=== PATIENT | male | born 1965 | race Caucasian/White ===

== ENCOUNTER 2023-03-11 07:27 | Outpatient (REF) | payer OTHER, SELFPAY ==
[2023-03-11 11:57] LABS: Appearance Urine Clear; Color Urine Yellow; Glucose Urine UA Negative (Negative); Leukocyte Esterase Urine Negative (Negative); Nitrite Urine Negative (Negative); PH 7.5 (5.0-9.0); Specific Gravity - Urine 1.015 (1.005-1.025); Urine Blood Negative (Negative); Urine Ketones Negative (Negative); Urine Protein Negative (Neg-Trace)
[2023-03-11 12:05] LABS: Prostate Specific Antigen Scr 0.71 ng/mL (<0.05-4.0)
[2023-03-11 12:21] LABS: Alanine Aminotransferase 26 U/L (0-40); Albumin Level 3.9 g/dL (3.5-5.0); Alkaline Phosphatase 69 U/L (39-117); Anion Gap 9 (12-20); Aspartate Amino Transferase 23 U/L (5-37); Bilirubin Total 0.5 mg/dL (0.0-1.0); Blood Urea Nitrogen 11 mg/dL (9-16); Calcium 9.4 mg/dL (8.4-10.2); Carbon Dioxide 29 mmol/L (22-29); Chloride 107 mmol/L (96-108); Cholesterol 243 mg/dL; Estimated Glomerular Filt Rate > 60; Glucose Fasting 95 mg/dL (60-99); HDL Cholesterol 62 mg/dL; LDL Cholesterol Calculated 164 mg/dl; Potassium 4.6 mmol/L (3.3-5.1); Sodium 140 mmol/L (135-145); TSH reflex Free T4 2.78 uIU/mL (0.32-4.0); Triglycerides 85 mg/dL
[2023-03-11 12:42] LABS: Creatinine Urine 151.78 mg/dL; Microalbumin Urine < 5.0 mg/L
== END 2023-03-11 07:28 | disposition home or self-care (01) ==
LOC: HO.WFDLDS 07:27
PROVIDERS: Visit Provider Family Medicine
DX: Z00.00 Encounter for general adult medical examination without abnormal findings (principal); Z12.5 Encounter for screening for malignant neoplasm of prostate; I10 Essential (primary) hypertension
CPT/HCPCS: 36415; 80053; 80061; 81003; 82043; 84153; 84443

== ENCOUNTER 2023-03-18 10:05 | Outpatient (REF) | payer OTHER, SELFPAY ==
--- NOTE | ~2023-03-18 | XR_ITS ---
EXAMINATION: XR CHEST CLINICAL INFORMATION: Routine physical COMPARISON: 10/02/2008 TECHNIQUE: 2 views of the chest were obtained. FINDINGS: No significant abnormality is noted involving the heart, lungs, mediastinum, bony thorax or soft tissues. XR/XR chest 2V IMPRESSION: Unremarkable examination.
== END 2023-03-18 10:06 | disposition home or self-care (01) ==
LOC: HO.XRAY 10:05
PROVIDERS: PCP Family Medicine; Visit Provider Family Medicine
DX: Z00.00 Encounter for general adult medical examination without abnormal findings (principal); J45.909 Unspecified asthma, uncomplicated; R06.89 Other abnormalities of breathing; Z83.6 Family history of other diseases of the respiratory system
CPT/HCPCS: 71046

== ENCOUNTER 2023-03-24 13:56 | Outpatient (AMB) | payer OTHER, SELFPAY ==
[2023-03-24 14:07] VITALS: BP 120/64; PULSE 60; O2SAT 96; BMI 30.6
--- NOTE | 2023-03-24 14:07 | A.OFFPC_ITS ---
Vital Signs 03/24/23 14:07 Height 5 ft 11 in Weight 219 lb 8 oz BMI 30.6 BP 120/64 Blood Pressure Location Lt brachial Position Sitting Pulse 60 Pulse Source Pulse Oximeter Pulse Oximetry (%) 96 Oxygen Delivery Method Room Air Intake Visit Reasons: CPE with f/u labs and health maintenance Intake Note: Patient is here for his physical. Following up on labs, x-ray. Patient is concerned about clearing his throat a lot, too. Patient is concerned about plantar fasciitis? Allergies No Known Allergies Allergy (Unverified 03/24/23 14:10) Medication List - Last Reconciled 03/24/23 by Srikanth Reyes MD albuterol sulfate 90 mcg/actuation 1 puff inhalation QID 30 days omeprazole 20 mg PO DAILY 30 days Tobacco use date assessed: 03/24/23 Dental Screening Dental Screen Date: 03/24/23 Did you have a dental visit in the last 12 months?: Yes Did you have a dental problem in the last 6 months where you did not have access to dental care?: No Was dental information given to patient?: Patient has dentist HPI CPE with f/u labs and health maintenance HPI Details Patient presents for CPE Feels well today. Chronic tickle and cough have resolved. He did not try om eprazole but plans to if this returns. Ordered chest x-ray due to the above and patient has family history of pulmonary fibrosis. Chest x-ray was clear. Pain at plantar surface of feet bilaterally in front Of his heels. Worse after he has rested for a while and then starts to walk again Complaint of thickened nails No other complaints. [facility] Medical History Asthma Kidney stone on left side Surgical History H/O neck surgery History of appendectomy Family History Father Pulmonary fibrosis Arthritis High blood pressure Social History Household Members: Spouse Both parents involved: No Caregiver staying overnight: No Housing: House Are you a primary home child care provider to a significant other at home: No Do you presently have visiting nurse or other home services: No 75 years or older and lives alone: No Alcohol intake: current Patient Tobacco Use Status: Never used Tobacco e-Cigarette/Vaping Use: Never Used service: Yes Current occupational status: employed Current occupation: [employer] Cognitive needs: No Hearing needs: No Vision needs: No Review of Systems Const Denies chills, Denies fatigue, Denies fever(s), Denies headache(s) and Denies weakness Eyes Denies change in vision ENT Denies dizziness, Denies headache(s), Denies hearing loss, Denies nasal c ongestion, Denies sinus pain, Denies sinus pressure and Denies sore throat Card Denies chest pain, Denies lightheadedness, Denies dyspnea and Denies other (palpitations) Resp Denies cough, Denies dyspnea and Denies wheezing GI Denies abdominal pain, Denies melena, Denies hematochezia, Denies change in bowel habits, Denies dyspepsia and Denies nausea Denies hematuria and Denies dysuria Musc Details: Plantar foot pain bilaterally. See HPI Denies abnormal gait, Denies myalgias, Denies arthralgias, Denies numbness and Denies tingling Skin/Breast Details: Dry think in nails. No itch or burning Denies rash, Denies unusual bruising and Denies wounds Neuro Denies abnormal gait, Denies dizziness, Denies headache(s), Denies memory loss, Denies numbness, Denies Sensory deficit (Neuro), Denies tingling and Denies weakness Psych Denies anxiety, Denies depression and Denies memory loss Endo Denies cold intolerance, Denies fatigue, Denies heat intolerance, Denies polydipsia and Denies polyuria Gregorio/Lymph Denies easy bleeding and Denies easy bruising Aller/Immun Denies wheezing Physical exam (Primary Care) Vital Signs: Last Vital Signs Pulse 60 03/24/23 14:07 BP 120/64 03/24/23 14:07 Pulse Ox 96 03/24/23 14:07 Oxygen Delivery Method Room Air 03/24/23 14:07 BMI result Body Mass Index 30.6 Tobacco/Smoking Status: Tobacco use Status Tobacco use date assessed 03/24/23 03/24/23 14:17 Patient Tobacco Use Status Never used Tobacco 03/24/23 14:09 e-Cigarette/Vaping Use Never Used 03/24/23 14:09 Const Other: General Appearance: no apparent distress, pleasant. HEENT: PERRLA, EOMI bilaterally, nose clear, TM's normal. Oral cavity: no lesions, pharnyx and tonsils normal. Neck: supple, no lymphadenopathy, no thyromegaly, JVP flat, no carotid bruit Heart: RRR, no murmurs, clicks or rubs, no gallops. Lungs: clear to auscultation. Chest wall: nontender. Abdomen: soft, non tender/non distended, no masses palpated, no hepatosplenomegaly, normal active bowel sounds. Back: normal ROM of spine, no spinal tenderness, no CVA tenderness. Skin: normal, no rash. Dry thickened nails. No erythema. Peripheral pulses: 2+, radial, dorsalis pedis, posterior tibial, bilaterally symetrical. Extremities: Tenderness at bilateral patch our services just anterior to the heel. no edema. Neurologic Exam: alert and oriented x3, gait normal, no focal abnormality, motor 5/5 bilaterally proximally and distally in all 4 extremities, DTRs 1-2+ in all 4 exremities, Rhomberg negative, tiptoes for 5 seconds. Psych: affect normal. Neuro Sensory Exam: No Sensory deficit (Neuro) Assessment and Plan Assessment & Plan (1) Adult general medical exam: Code(s): Z00.00 - Encounter for general adult medical examination without abnormal findings Plan: 57-year-old male presents for complete physical exam Encouraged healthy diet with active lifestyle and plenty of exercise (2) Plantar fasciitis: Code(s): M72.2 - Plantar fascial fibromatosis Plan: Demonstrated exercises Recommended ice and NSAIDs Can use heel cups when exercising (3) Throat irritation: Code(s): J39.2 - Other diseases of pharynx Plan: This seems to have resolved spontaneously. Had prescribed omeprazole to see if this would help but he has not tried yet. He says if symptoms resolve he will try it. He was doing a lot of coughing and throat clearing and has a family history of pulmonary fibrosis so he was concerned about this. Also get a chest x-ray which was clear (4) Screening for prostate cancer: Code(s): Z12.5 - Encounter for screening for malignant neoplasm of prostate Plan: PSA is within normal limits (5) Screening for colon cancer: Code(s): Z12.11 - Encounter for screening for malignant neoplasm of colon Plan: Colonoscopy about 4 years ago and he was told to follow-up in 10 years Up-to-date (6) Thickened nails: Code(s): L60.2 - Onychogryphosis Plan: No burning or itching. Likely had prior fungal infection and also has chronic nail trauma as he likes to hike No specific medication recommendations at this time. Avoid additional nail trauma Keep feet moisturizer (7) Hyperlipidemia: Code(s): E78.5 - Hyperlipidemia, unspecified Plan: LDL cholesterol is high at 160 Good HDL but likely not fully protective high LDL Encouraged diet low in saturated fats and cholesterol. Encouraged weight loss and continue exercise Will repeat in 3 months and discuss options Coding Level of Care Code Est Pt Level 4 (19920) Est Pt Prev Care 40-64y(25455) Diagnoses Adult general medical exam Z00.00 Plantar fasciitis M72.2 Throat irritation J39.2 Screening for prostate cancer Z12.5 Screening for colon cancer Z12.11 Thickened nails L60.2 Hyperlipidemia E78.5
== END 2023-03-24 14:53 | disposition home or self-care (01) ==
PROVIDERS: PCP Family Medicine; Visit Provider Family Medicine
DX: Z00.00 Encounter for general adult medical examination without abnormal findings (principal); L60.2 Onychogryphosis; E78.5 Hyperlipidemia, unspecified; M72.2 Plantar fascial fibromatosis
CPT/HCPCS: 99396

== ENCOUNTER 2023-06-16 07:33 | Outpatient (REF) | payer OTHER, SELFPAY ==
[2023-06-16 11:35] LABS: Alanine Aminotransferase 22 U/L (0-40); Albumin Level 4.1 g/dL (3.5-5.0); Alkaline Phosphatase 69 U/L (39-117); Anion Gap 8 (12-20); Aspartate Amino Transferase 21 U/L (5-37); Bilirubin Total 0.4 mg/dL (0.0-1.0); Blood Urea Nitrogen 15 mg/dL (9-16); Calcium 9.1 mg/dL (8.4-10.2); Carbon Dioxide 28 mmol/L (22-29); Chloride 107 mmol/L (96-108); Cholesterol 223 mg/dL (<200); Estimated Glomerular Filt Rate > 60; Glucose Fasting 98 mg/dL (60-99); HDL Cholesterol 60 mg/dL (>40); LDL Cholesterol Calculated 148 mg/dL (<100); Sodium 139 mmol/L (135-145); Total Protein 6.9 g/dL (6.5-8.0); Triglycerides 75 mg/dL (<150)
== END 2023-06-16 07:34 | disposition home or self-care (01) ==
LOC: HO.WFDLDS 07:33
PROVIDERS: Visit Provider Family Medicine
DX: Z00.00 Encounter for general adult medical examination without abnormal findings (principal); E78.5 Hyperlipidemia, unspecified
CPT/HCPCS: 36415; 80053; 80061

== ENCOUNTER 2023-06-25 14:25 | Outpatient (AMB) | payer OTHER, SELFPAY ==
[2023-06-25 14:36] VITALS: BP 120/70; PULSE 66; O2SAT 98; BMI 31.0
--- NOTE | 2023-06-25 14:36 | MHC.PC.OV ---
Vital Signs 06/25/23 14:36 Height 5 ft 11 in Weight 222 lb 4 oz BMI 31.0 BP 120/70 Blood Pressure Location Lt brachial Position Sitting Pulse 66 Pulse Source Pulse Oximeter Pulse Oximetry (%) 98 Oxygen Delivery Method Room Air Intake Visit Reasons: f/u labs Intake Note: Patient is here to follow up on labs today. Allergies No Known Allergies Allergy (Unverified 06/25/23 14:37) Tobacco use date assessed: 06/25/23 HPI f/u labs HPI Details 57 y/o male presents to f/u labs. Labs were drawn 06/16/23. Reviewed labs with pt. Triglycerides 75. TC 223. LDL 148. HDL 60. Pt notes throat irritation have improved and has not trialed omeprazole yet. PFSH Medical History Kidney stone on left side Asthma Surgical History H/O neck surgery History of appendectomy Family History Father Pulmonary fibrosis Arthritis High blood pressure Social History Household Members: Spouse Both parents involved: No Caregiver staying overnight: No Housing: House Are you a primary healthcare consultant to a significant other at home: No Do you presently have visiting nurse or other home services: No 75 years or older and lives alone: No Alcohol intake: current Patient Tobacco Use Status: Never used Tobacco e-Cigarette/Vaping Use: Never Used service: Yes Current occupational status: employed Current occupation: [employer] Cognitive needs: No Hearing needs: No Vision needs: No Questionnaire ACT Questionnaire In the past 4 weeks, how much of the time did your asthma keep you from getting as much done at work, school or at home?: None of the time During the past 4 weeks, how often have you had shortness of breath?: Not at all (once) During the past 4 weeks, how often did your asthma symptoms wake you up at night or earlier than usual in the morning?: Not at all During the past 4 weeks, how often have you had to use your rescue inhaler or nebulizer medication?: Not at all (once or twice) How would you rate your asthma control during the past 4 weeks?: Completely controlled Score: 25 Review of Systems Const Denies chills, Denies fatigue, Denies fever(s), Denies headache(s) and Denies weakness ENT Denies dizziness and Denies headache(s) Card Denies dyspnea Resp Denies cough, Denies dyspnea, Denies wheezing and Denies other (shortness of breath) Musc Denies numbness and Denies tingling Neuro Denies dizziness, Denies headache(s), Denies numbness, Denies tingling and Denies weakness Psych Denies anxiety and Denies depression Endo Denies fatigue Aller/Immun Denies wheezing Physical exam (Primary Care) Vital Signs: Last Vital Signs Pulse 66 06/25/23 14:36 BP 120/70 06/25/23 14:36 Pulse Ox 98 06/25/23 14:36 Oxygen Delivery Method Room Air 06/25/23 14:36 BMI result Body Mass Index 31.0 Tobacco/Smoking Status: Tobacco use Status Tobacco use date assessed 06/25/23 06/25/23 14:43 Patient Tobacco Use Status Never used Tobacco 06/25/23 14:43 e-Cigarette/Vaping Use Never Used 06/25/23 14:43 Const General: well developed; No acute distress Nutritional Appearance: well nourished Orientation/consciousness: patient oriented x3 HENMT Head: Yes normocephalic and Yes atraumatic Eyes General: appearance normal, both eyes and all related structures Pupils: Equal, round and reactive pupils present EOM: EOMs intact bilaterally Resp Effort & Inspection: normal respiratory effort Auscultation: clear to auscultation bilaterally Cardio Rate: regular rate Rhythm: regular rhythm Heart sounds: S1 normal heart sound present, S2 normal heart sound present, no gallops, no murmurs and no rubs Neuro General: patient oriented x3 and gait normal Cranial nerves: Yes Equal, round and reactive pupils present Psych Affect: normal affect Office Procedures Flu Questionnaire Does the patient have a severe egg allergy?: No Does the patient have severe life threatening allergies?: No Does the patient have a fever or illness today?: No Has the patient ever had Guillain-[place] Syndrome?: No Has the patient ever had any past reaction to a flu shot?: No Pulmonary Testing Pulmonary Testing Details: [phone] best 460 All charges added?: Additional procedure code (CPT) needed Immunizations flu vacc [id number] 6mos up(PF) 60 mcg(15 mcgx4)/0.5 mL IM syringe Performing Provider: Srikanth Reyes MD Performing Location[place] [facility] Documented (not given) by: Masha Rider CMA on 06/25/23 14:51 Reason Not Given: Received Previously Assessment and Plan Assessment & Plan (1) Hyperlipidemia: Code(s): E78.5 - Hyperlipidemia, unspecified Plan: Patient?made?significant?improvements?in?his?LDL?cholesterol. HDL?cholesterol?of?remains?high Encouraged?ongoing?dietary?changes?and?weight?loss He?will?follow-up?at?his?annual?exam?next?year (2) Throat irritation: Code(s): J39.2 - Other diseases of pharynx Plan: This?has?resolved He?can?let?me?know?if?this?return (3) Plantar fasciitis: Code(s): M72.2 - Plantar fascial fibromatosis Plan: Improving?with?exercises?and?a?shoe?insert (4) Asthma: Code(s): J45.909 - Unspecified asthma, uncomplicated Plan: ACT?questionnaire?25, on?albuterol?as?needed He?is?optimized Orders: Orders Pulmonary Test/Procedure Today J45.909 - Unspecified asthma, uncomplicated Influenza [id number] Immunization Today Z23 - Encounter for immunization Coding Level of Care Code Est Pt Level 4 (11834) Diagnoses Hyperlipidemia E78.5 Throat irritation J39.2 Plantar fasciitis M72.2 Asthma J45.909
== END 2023-06-25 15:52 | disposition home or self-care (01) ==
PROVIDERS: PCP Family Medicine; Visit Provider Family Medicine
DX: E78.5 Hyperlipidemia, unspecified (principal); J39.2 Other diseases of pharynx; M72.2 Plantar fascial fibromatosis; J45.909 Unspecified asthma, uncomplicated
CPT/HCPCS: 99214

== ENCOUNTER 2024-03-31 07:53 | Outpatient (REF) | payer OTHER, SELFPAY ==
[2024-03-31 11:57] LABS: Alanine Aminotransferase 21 U/L (0-40); Albumin Level 4.1 g/dL (3.5-5.0); Alkaline Phosphatase 71 U/L (39-117); Aspartate Amino Transferase 23 U/L (5-37); Bilirubin Direct 0.3 mg/dL (0.0-0.5); Bilirubin Total 0.8 mg/dL (0.0-1.0); Cholesterol 252 mg/dL (<200); HDL Cholesterol 66 mg/dL (>40); LDL Cholesterol Calculated 172 mg/dL (<100); Triglycerides 72 mg/dL (<150)
== END 2024-03-31 07:54 | disposition home or self-care (01) ==
LOC: HO.WFDLDS 07:53
PROVIDERS: Visit Provider Nurse Practitioner Family
DX: E78.5 Hyperlipidemia, unspecified (principal)
CPT/HCPCS: 36415; 80061; 80076

== ENCOUNTER 2024-04-12 08:52 | Outpatient (AMB) | payer OTHER, SELFPAY ==
--- NOTE | 2024-04-12 09:06 | A.OFFPC_ITS ---
Vital Signs 04/12/24 09:10 Height 5 ft 11 in Weight 216 lb BMI 30.1 BP 100/50 L Blood Pressure Location Lt brachial Position Sitting Respiration 12 Pulse 61 Pulse Source Pulse Oximeter Temp 97.5 F Temp Source Tympanic Pulse Oximetry (%) 99 Oxygen Delivery Method Room Air Intake Visit Reasons: CPE with f/u labs and health maint. Intake Note: CPE Allergies No Known Allergies Allergy (Verified 04/12/24 09:07) Medication List - Last Reconciled 04/12/24 by Srikanth Reyes MD albuterol sulfate 90 mcg/actuation 1 puff inhalation QID 30 days Tobacco use date assessed: 04/12/24 Dental Screening Dental Screen Date: 04/12/24 Did you have a dental visit in the last 12 months?: Yes Did you have a dental problem in the last 6 months where you did not have access to dental care?: No Was dental information given to patient?: Patient has dentist HPI CPE with f/u labs and health maint. HPI Details 58 y/o male presents for a CPE with f/u labs and health maint. Labs were drawn 03/31/24. Reviewed labs with pt. Triglycerides 72. TC 252. LDL 172. HDL 66. Blood pressure today 100/50, 61p. Reports some fingers/toes numbness/tingling. Denies any chest pain. Colonoscopy about 5 years ago at [facility]. HPI Comments History of Present Illness Details Documentation assistance for Srikanth Reyes MD, was provided by Dago Osborn, Manager Of International on 04/12/2024 at 9:42 AM EST. I, Dr. Reyes, have read, observed, and verified documentation. [facility]LY [facility] Medical History Kidney stone on left side Asthma Surgical History H/O neck surgery History of appendectomy Family History Father Pulmonary fibrosis Arthritis High blood pressure Social History (Updated 04/12/24 @ 09:08 by Carol Ann Casper MA) Household Members: Spouse Both parents involved: No Caregiver staying overnight: No Housing: House Are you a primary intensive care anaesthetist to a significant other at home: No Do you presently have visiting nurse or other home services: No 75 years or older and lives alone: No Alcohol intake: current Patient Tobacco Use Status: Never used Tobacco e-Cigarette/Vaping Use: Never Used Second Hand Smoke Exposure: No service: Yes Current occupational status: employed Current occupation: [employer] Cognitive needs: No Hearing needs: No Vision needs: No Questionnaire PHQ-9 Over the last 2 weeks, how often have you been bothered by any of the following problems? 1. Little interest or pleasure in doing things: not at all 2. Feeling down, depressed, or hopeless: not at all 3. Trouble falling or staying asleep, or sleeping too much: not at all 4. Feeling tired or having little energy: not at all 5. Poor appetite or overeating: not at all 6. Feeling bad about yourself - or that you are a failure or have let yourself or your family down: not at all 7. Trouble concentrating on things, such as reading the newspaper or watching television: not at all 8. Moving or speaking so slowly that other people could have noticed. Or the opposite - being so fidgety or restless that you have been moving around a lot more than usual: not at all 9. Thoughts that you would be better off or of hurting yourself in some way: not at all Total score: 0 Depression Screening Interpretation: Negative Depression Screening Done: Yes 85163 - PHQ-9 Billing: Yes Source: Developed by Drs. Srinivasan Joshi, Yvonne Chapman, Joel Bains and colleagues, with an educational steven from [employer]. Thrive Questionnaire Date Thrive assessed: 04/12/24 I am a: Patient What is your living situation today?: I have a steady place to live Within the past 12 months, did the food you bought not last and you didn't have the money to get more?: Never true Within the past 12 months, did you worry whether your food would run out before you got money to buy more?: Never true Do you have trouble paying for medicines?: No Do you have trouble getting transportation to medical appointments?: No Do you have trouble paying your heating and electricity bill?: No Do you have trouble taking care of your child, family member or friend?: No Do you have trouble with day-to-day activities such as bathing, preparing meals, shopping, managing finances, etc.?: No Are you currently unemployed and looking for a job?: No Are you interested in more education?: No Currently or been in a relationship where the following occur: No concerns reported THRIVE Score: 0 AUDIT C Alcohol Use Questionnaire (AUDIT-C) 1. How often do you have a drink containing alcohol?: 2-3 times a week 2. How many drinks containing alcohol do you have on a typical day when you are drinking?: 1 or 2 3. How often do you have six or more drinks on one occasion?: Less than monthly Total Score: 4 MAXIM-7 AMB Questionnaire MAXIM-7 Date MAXIM - 7 assessed: 04/12/24 Feeling nervous, anxious, or on edge: 0 = Not at all Not being able to stop or control worryin = Not at all Worrying too much about different things: 0 = Not at all Trouble relaxin = Not at all Being so restless that it is hard to sit still: 0 = Not at all Becoming easily annoyed or irritable: 0 = Not at all Feeling afraid as if something awful might happen: 0 = Not at all Total MAXIM-7 score (0-4 normal; 5-9 mild; 10-14 moderate; 15-21 severe): 0 Source: Developed by Drs. Srinivasan Joshi, Yvonne Chapman, Joel Bains and colleagues, with an educational steven from [employer]. MAXIM-7 Assessment Billing MAXIM-7 Assessment Tool: MAXIM-7 Assessment 40113 Review of Systems Const Denies chills, Denies fatigue, Denies fever(s), Denies headache(s) and Denies weakness Eyes Denies change in vision ENT Denies dizziness, Denies headache(s), Denies hearing loss, Denies nasal congestion, Denies sinus pain, Denies sinus pressure and Denies sore throat Card Denies chest pain, Denies lightheadedness, Denies dyspnea and Denies other (palpitations) Resp Denies cough, Denies dyspnea and Denies wheezing GI Denies abdominal pain, Denies melena, Denies hematochezia, Denies change in bowel habits, Denies dyspepsia and Denies nausea Denies hematuria and Denies dysuria Musc Denies abnormal gait, Denies myalgias, Denies arthralgias, Denies numbness and Denies tingling Skin/Breast Denies rash, Denies unusual bruising and Denies wounds Neuro Denies abnormal gait, Denies dizziness, Denies headache(s), Denies memory loss, Denies numbness, Denies Sensory deficit (Neuro), Denies tingling and Denies weakness Psych Denies anxiety, Denies depression and Denies memory loss Endo Denies cold intolerance, Denies fatigue, Denies heat intolerance, Denies polydipsia and Denies polyuria Gregorio/Lymph Denies easy bleeding and Denies easy bruising Aller/Immun Denies wheezing Physical exam (Primary Care) Vital Signs: Last Vital Signs Temp 97.5 F 04/12/24 09:10 Pulse 61 04/12/24 09:10 Resp 12 04/12/24 09:10 BP 100/50 L 04/12/24 09:10 Pulse Ox 99 04/12/24 09:10 Oxygen Delivery Method Room Air 04/12/24 09:10 BMI result Body Mass Index 30.1 Tobacco/Smoking Status: Tobacco use Status Tobacco use date assessed 04/12/24 04/12/24 09:12 Patient Tobacco Use Status Never used Tobacco 04/12/24 09:08 e-Cigarette/Vaping Use Never Used 04/12/24 09:08 PHQ-9: PHQ-9 Score PHQ-9: Total score 0 04/12/24 09:12 Depression Screening Interpretation: Negative Thrive Assessment: Date of Thrive Assessment Date Thrive assessed 04/12/24 04/12/24 09:12 Currently or been in a relationship where the following occur: No concerns reported Const General: no acute distress, well developed, alert and awake Nutritional Appearance: well nourished Orientation/consciousness: patient oriented x3 HENMT Head: Yes normocephalic and Yes atraumatic Ears: hearing grossly normal bilaterally and TM's normal bilaterally General nose exam: Normal external nose present and Normal nares present Mouth: Normal oral and palatal mucosa present and moist mucous membranes Teeth and gingiva: dentition normal Throat: Yes posterior oropharynx normal Eyes General: appearance normal, both eyes and all related structures Pupils: Equal, round and reactive pupils present and Pupil accommodation reflex normal EOM: EOMs intact bilaterally Neck Neck: Yes normal visual inspection, Yes no lymphadenopathy and Yes trachea midline Thyroid: Thyroid normal Carotids: no bruits Lymphatic: no lymphadenopathy noted Chest Chest palpation & inspection: normal inspection of the chest Resp Effort & Inspection: normal respiratory effort Auscultation: clear to auscultation bilaterally Cardio Rate: regular rate Rhythm: regular rhythm Heart sounds: S1 normal heart sound present, S2 normal heart sound present, no gallops, no murmurs and no rubs Bruits: no abdominal aortic bruits and no carotid bruits GI Palpation (GI): No Abdominal aortic bruit present, Soft to palpation, nontender, No hepatosplenomegaly present and No Rebound tenderness present Auscultation: normal bowel sounds General: Yes no CVA tenderness Back/Spine/Pelvis Back: no CVA tenderness Cervical Spine: cervical ROM normal and No Cervical spine tenderness Thoracic/Lumbar Spine: thoraco-lumbar ROM normal, No pain with thoraco-lumbar ROM, No thoracic spinal tenderness and No lumbar spinal tenderness Skin Lesions: no lesions Rashes: no rashes Trauma: no lacerations or abrasions Wounds: no wounds Nails: normal Neuro General: patient oriented x3 Cranial nerves: Yes Equal, round and reactive pupils present Cognition (Neuro): normal cognition Gait exam (Neuro): Normal gait present Motor exam (neuro): 5/5 motor strength present throughout Sensory Exam: No Sensory deficit (Neuro) Deep tendon reflexes (DTR's): Right patellar reflex intensity grade: 2+ and Left patellar reflex intensity grade: 2+ Extrem General: Yes normal to inspection and No edema Psych Appearance: grossly normal Affect: normal affect Attitude: cooperative Thought process: Normal thought process present Assessment and Plan Assessment & Plan (1) Adult general medical exam: Code(s): Z00.00 - Encounter for general adult medical examination without abnormal findings Plan: 58-year-old?male?presents?for?complete?physical?exam Encouraged?healthy?diet?with?active?lifestyle?and?plenty?of?exercise (2) Hyperlipidemia: Code(s): E78.5 - Hyperlipidemia, unspecified Plan: LDL?cholesterol?is?too?high Starting?atorvastatin?20?mg?daily Recheck?lipids?in?a?few?months Encouraged?ongoing?work?at?diet?lower?in?saturated?fats?and?cholesterol,?exercis e?and?weight?loss (3) Hand numbness: Code(s): R20.0 - Anesthesia of skin Plan: Bilateral?tingling?in?fingers?and?toes?intermittently.??No?chest?pain Will?check?additional?labs (4) Screening for prostate cancer: Code(s): Z12.5 - Encounter for screening for malignant neoplasm of prostate Plan: Due?for?PSA Order (5) Screening for colon cancer: Code(s): Z12.11 - Encounter for screening for malignant neoplasm of colon Plan: Patient?says?he?had?a?colonoscopy?about?5?years?ago?at[facility] Will?request?report Orders: Orders Vitamin B12 and Folate Today E53.8 - Deficiency of other specified B group vitamins, R20.0 - Anesthesia of skin TSH reflex Free T4 Today R20.0 - Anesthesia of skin, Z00.00 - Encounter for general adult medical examination without abnormal findings Lipid Panel Today E78.5 - Hyperlipidemia, unspecified, Z00.00 - Encounter for general adult medical examination without abnormal findings Comprehensive [place]. Panel Fast Today E78.5 - Hyperlipidemia, unspecified, Z00.00 - Encounter for general adult medical examination without abnormal findings Complete Blood Count Auto Diff Today R20.0 - Anesthesia of skin, Z00.00 - Encounter for general adult medical examination without abnormal findings Medications: New atorvastatin 20 mg PO BEDTIME 90 days 90 tabs 2RF Coding Level of Care Code Est Pt Level 3 (40158) Est Pt Prev Care 40-64y(55758) Diagnoses Adult general medical exam Z00.00 Hyperlipidemia E78.5 Hand numbness R20.0 Screening for prostate cancer Z12.5 Screening for colon cancer Z12.11 Additional Codes MAXIM-7 Assessment Billing - MAXIM-7 Assessment Tool: MAXIM-7 Assessment 91090 ([id number])
[2024-04-12 09:10] VITALS: BP 100/50; PULSE 61; RESP 12; TEMP 36.4; O2SAT 99; BMI 30.1
== END 2024-04-12 09:48 | disposition home or self-care (01) ==
PROVIDERS: PCP Family Medicine; Visit Provider Family Medicine
DX: Z00.00 Encounter for general adult medical examination without abnormal findings (principal); E78.5 Hyperlipidemia, unspecified; R20.0 Anesthesia of skin; Z12.5 Encounter for screening for malignant neoplasm of prostate; Z12.11 Encounter for screening for malignant neoplasm of colon

== ENCOUNTER → 2024-04-12 08:52 | Outpatient (BNVA) | payer OTHER, SELFPAY | PROVIDERS: PCP Family Medicine; Visit Provider Family Medicine | DX: Z00.01 Encounter for general adult medical examination with abnormal findings (principal); E78.5 Hyperlipidemia, unspecified; R20.0 Anesthesia of skin | CPT/HCPCS: 96127 ==

== ENCOUNTER 2024-07-01 08:19 | Outpatient (REF) | payer OTHER, SELFPAY ==
[2024-07-01 10:57] LABS: MANUAL DIFF FLAG NO
[2024-07-01 11:03] LABS: Basophils Percent Auto 0.8 % (0-2); Eosinophils Absolute Auto 0.2 X10*3/uL (0.0-0.4); Eosinophils Percent Auto 4.2 % (0-4); Hematocrit 41.9 % (42.0-52.0); Hemoglobin 14.4 g/dl (14.0-18.0); Imm Gran Abs Auto 0.01 X10*3/uL (0.00-0.03); Imm Gran Pct Auto 0.2 % (0.0-0.4); Lymphocytes Absolute Auto 1.5 X10*3/uL (1.2-4.9); Mean Corpuscular HGB Conc 34.4 g/dl (31.0-36.0); Mean Corpuscular Hemoglobin 32.7 pg (27.0-33.0); Mean Corpuscular Volume 95.2 fL (80.0-98.0); Mean Platelet Volume 10.4 fL (9.4-12.4); Monocytes Absolute Auto 0.6 X10*3/uL (0.1-1.2); Monocytes Percent Auto 12.2 % (2-11); Neutrophils Absolute Auto 2.8 x10*3/uL (2.0-8.3); Neutrophils Percent Auto 54.6 % (45-73); Platelet Count 219 X10*3/uL (160-400); Red Cell Distribution Width 12.1 % (11.0-16.0); White Blood Count 5.2 X10*3/uL (4.8-10.8)
[2024-07-01 11:21] LABS: Alanine Aminotransferase 41 U/L (0-40); Albumin Level 4.1 g/dL (3.5-5.0); Alkaline Phosphatase 74 U/L (39-117); Anion Gap 9 (12-20); Aspartate Amino Transferase 36 U/L (5-37); Bilirubin Total 0.7 mg/dL (0.0-1.0); Blood Urea Nitrogen 13 mg/dL (9-16); Calcium 9.2 mg/dL (8.4-10.2); Carbon Dioxide 29 mmol/L (22-29); Chloride 106 mmol/L (96-108); Cholesterol 161 mg/dL (<200); Estimated Glomerular Filt Rate > 60; Glucose Fasting 90 mg/dL (60-99); HDL Cholesterol 62 mg/dL (>40); LDL Cholesterol Calculated 88 mg/dL (<100); Potassium 4.3 mmol/L (3.3-5.1); Sodium 140 mmol/L (135-145); Total Protein 6.9 g/dL (6.5-8.0); Triglycerides 57 mg/dL (<150)
[2024-07-01 11:57] LABS: Folate 14.5 ng/mL (> or = 4.0); Vitamin B12 1138 pg/mL (200-900)
== END 2024-07-01 08:20 | disposition home or self-care (01) ==
LOC: HO.WFDLDS 08:19
PROVIDERS: Visit Provider Family Medicine
DX: Z00.00 Encounter for general adult medical examination without abnormal findings (principal); E78.5 Hyperlipidemia, unspecified; R20.0 Anesthesia of skin; E53.8 Deficiency of other specified B group vitamins
CPT/HCPCS: 36415; 80053; 80061; 82607; 82746; 84443; 85025

== ENCOUNTER 2024-07-14 08:26 | Outpatient (AMB) | payer OTHER, SELFPAY ==
--- NOTE | 2024-07-14 08:47 | MHC.PC.OV ---
Vital Signs 07/14/24 08:48 Height 5 ft 11 in Weight 213 lb 2 oz BMI 29.7 BP 110/60 Blood Pressure Location Rt brachial Position Sitting Respiration 14 Pulse 71 Pulse Source Pulse Oximeter Temp 98.0 F Temp Source Oral Pulse Oximetry (%) 97 Oxygen Delivery Method Room Air Intake Visit Reasons: f/u HLD Allergies No Known Allergies Allergy (Verified 04/12/24 09:07) Tobacco use date assessed: 04/12/24 Dental Screening Dental Screen Date: 04/12/24 HPI f/u HLD HPI Details Patient?returns?to?follow-up?hyperlipidemia?and?lab Had?started?him?on?atorvastatin?20?mg?daily?for?LDL?cholesterol?over?170 Patient?states?that?he?has?been?having?body?aches.??These?did?not?go?away?and?he?started?a?cool?Q10?supplement?OTC?which?has?improved?his?symptoms. LDL?cholesterol?now?at?88 Also?reviewed?his?other?labs?including?his?ALT?with?his?slightly?elevated?at?40 Hematocrit?slightly?below?normal?range Has?other?labs?are?okay PFSH Medical History Kidney stone on left side Asthma Surgical History H/O neck surgery History of appendectomy Family History Father Pulmonary fibrosis Arthritis High blood pressure Social History (Updated 04/12/24 @ 09:08 by Carol Ann Casper [facility]) Household Members: Spouse Both parents involved: No Caregiver staying overnight: No Housing: House Are you a primary residential care officer to a significant other at home: No Do you presently have visiting nurse or other home services: No 75 years or older and lives alone: No Alcohol intake: current Patient Tobacco Use Status: Never used Tobacco e-Cigarette/Vaping Use: Never Used Second Hand Smoke Exposure: No service: Yes Current occupational status: employed Current occupation: [employer] Cognitive needs: No Hearing needs: No Vision needs: No Questionnaire PHQ-9 Over the last 2 weeks, how often have you been bothered by any of the following problems? 1. Little interest or pleasure in doing things: not at all 2. Feeling down, depressed, or hopeless: not at all 3. Trouble falling or staying asleep, or sleeping too much: not at all 4. Feeling tired or having little energy: not at all 5. Poor appetite or overeating: several days 6. Feeling bad about yourself - or that you are a failure or have let yourself or your family down: not at all 7. Trouble concentrating on things, such as reading the newspaper or watching television: not at all 8. Moving or speaking so slowly that other people could have noticed. Or the opposite - being so fidgety or restless that you have been moving around a lot more than usual: not at all 9. Thoughts that you would be better off or of hurting yourself in some way: not at all Total score: 1 Source: Developed by Drs. Srinivasan Joshi, Yvonne Chapman, Joel Bains and colleagues, with an educational steven from [employer]. Thrive Questionnaire Date Thrive assessed: 07/07/24 I am a: Patient What is your living situation today?: I have a steady place to live Within the past 12 months, did the food you bought not last and you didn't have the money to get more?: Never true Within the past 12 months, did you worry whether your food would run out before you got money to buy more?: Never true Do you have trouble paying for medicines?: No Do you have trouble getting transportation to medical appointments?: No Do you have trouble paying your heating and electricity bill?: No Do you have trouble taking care of your child, family member or friend?: No Do you have trouble with day-to-day activities such as bathing, preparing meals, shopping, managing finances, etc.?: No Are you currently unemployed and looking for a job?: No Are you interested in more education?: No Please select the resources that you would like help with: None Currently or been in a relationship where the following occur: No concerns reported THRIVE Score: 0 AUDIT C Alcohol Use Questionnaire (AUDIT-C) 1. How often do you have a drink containing alcohol?: 2-3 times a week Total Score: 3 MAXIM-7 AMB Questionnaire MAXIM-7 Date MAXIM - 7 assessed: 04/12/24 Feeling nervous, anxious, or on edge: 0 = Not at all Not being able to stop or control worryin = Not at all Worrying too much about different things: 0 = Not at all Trouble relaxin = Not at all Being so restless that it is hard to sit still: 0 = Not at all Becoming easily annoyed or irritable: 0 = Not at all Feeling afraid as if something awful might happen: 0 = Not at all Total MAXIM-7 score (0-4 normal; 5-9 mild; 10-14 moderate; 15-21 severe): 0 Source: Developed by Drs. Srinivasan Joshi, Yvonne Chapman, Joel Bains and colleagues, with an educational steven from [employer]. Review of Systems Const Denies chills, Denies fatigue, Denies fever(s), Denies headache(s) and Denies weakness ENT Denies dizziness and Denies headache(s) Card Denies chest pain, Denies lightheadedness, Denies dyspnea and Denies other (Palpitations) Resp Denies cough, Denies dyspnea, Denies wheezing and Denies other ( shortness of breath) Musc Denies numbness and Denies tingling Neuro Denies dizziness, Denies headache(s), Denies numbness, Denies tingling, Denies paresthesias and Denies weakness Psych Denies anxiety and Denies depression Endo Denies fatigue Aller/Immun Denies wheezing Physical exam (Primary Care) Tobacco/Smoking Status: Tobacco use Status Tobacco use date assessed 04/12/24 04/12/24 09:49 Patient Tobacco Use Status Never used Tobacco 04/12/24 09:49 e-Cigarette/Vaping Use Never Used 04/12/24 09:49 Thrive Assessment: Date of Thrive Assessment Date Thrive assessed 07/07/24 07/07/24 17:21 Currently or been in a relationship where the following occur: No concerns reported Const General: no acute distress and well developed Nutritional Appearance: well nourished Orientation/consciousness: patient oriented x3 HENMT Head: Yes normocephalic and Yes atraumatic Eyes General: appearance normal, both eyes and all related structures Pupils: Equal, round and reactive pupils present EOM: EOMs intact bilaterally Resp Effort & Inspection: normal respiratory effort Auscultation: clear to auscultation bilaterally Cardio Rate: regular rate Rhythm: regular rhythm Heart sounds: S1 normal heart sound present, S2 normal heart sound present, no gallops, no murmurs and no rubs Neuro General: patient oriented x3 and gait normal Cranial nerves: Yes Equal, round and reactive pupils present Psych Affect: normal affect Coding Level of Care Code Est Pt Level 4 (23955) Diagnoses Hyperlipidemia E78.5 Elevated ALT measurement R74.01 Borderline anemia D64.9 Assessment & Plan Assessment & Plan (1) Hyperlipidemia: Code(s): E78.5 - Hyperlipidemia, unspecified Category: Medical Plan: LDL?cholesterol?significantly?improved?with?atorvastatin?20?mg?daily. He?has?had?muscle?aches?with?this Will?decrease?atorvastatin?from?20?mg?daily?to?10?mg?daily.??He?can?continue?Co?Q10?OTC Wound?check?in?about?3?months.??Also?advised?continued?weight?loss?and?exercise (2) Elevated ALT measurement: Code(s): R74.01 - Elevation of levels of liver transaminase levels Category: Medical Plan: Very?mild?ALT?elevation Increase?hydration Continue?weight?loss Will?recheck?with?next?blood?draw (3) Borderline anemia: Code(s): D64.9 - Anemia, unspecified Category: Medical Plan: Recheck?CBC?with next?blood?draw Orders: Orders Complete Blood Count Auto Diff Today Z00.00 - Encounter for general adult medical examination without abnormal findings Lipid Panel Today E78.5 - Hyperlipidemia, unspecified, Z00.00 - Encounter for general adult medical examination without abnormal findings Comprehensive [place]. Panel Fast Today E78.5 - Hyperlipidemia, unspecified, Z00.00 - Encounter for general adult medical examination without abnormal findings Medications: Changed From atorvastatin 20 mg PO BEDTIME 90 days 90 tabs 2RF To atorvastatin 10 mg PO BEDTIME 90 days 90 tabs 2RF
[2024-07-14 08:48] VITALS: BP 110/60; PULSE 71; RESP 14; TEMP 36.7; O2SAT 97; BMI 29.7
== END 2024-07-14 09:09 | disposition home or self-care (01) ==
PROVIDERS: PCP Family Medicine; Visit Provider Family Medicine
DX: E78.5 Hyperlipidemia, unspecified (principal); R74.01 Elevation of levels of liver transaminase levels; D64.9 Anemia, unspecified

== ENCOUNTER → 2024-07-14 08:26 | Outpatient (BNVA) | payer OTHER, SELFPAY | PROVIDERS: PCP Family Medicine; Visit Provider Family Medicine ==

== ENCOUNTER 2024-10-06 07:47 | Outpatient (REF) | payer OTHER, SELFPAY ==
[2024-10-06 11:27] LABS: MANUAL DIFF FLAG NO
[2024-10-06 11:42] LABS: Basophils Absolute Auto 0.1 X10*3/uL (0.0-0.2); Eosinophils Absolute Auto 0.2 X10*3/uL (0.0-0.4); Eosinophils Percent Auto 3.7 % (0-4); Hematocrit 44.7 % (42.0-52.0); Hemoglobin 15.1 g/dl (14.0-18.0); Imm Gran Abs Auto 0.01 X10*3/uL (0.00-0.03); Imm Gran Pct Auto 0.2 % (0.0-0.4); Lymphocytes Absolute Auto 1.5 X10*3/uL (1.2-4.9); Lymphocytes Percent Auto 29.2 % (20-40); Mean Corpuscular HGB Conc 33.8 g/dl (31.0-36.0); Mean Corpuscular Hemoglobin 32.2 pg (27.0-33.0); Mean Corpuscular Volume 95.3 fL (80.0-98.0); Monocytes Absolute Auto 0.6 X10*3/uL (0.1-1.2); Monocytes Percent Auto 11.5 % (2-11); Neutrophils Absolute Auto 2.8 x10*3/uL (2.0-8.3); Neutrophils Percent Auto 54.4 % (45-73); Platelet Count 214 X10*3/uL (160-400); Red Blood Count 4.69 X10*6/uL (4.60-5.80); Red Cell Distribution Width 12.3 % (11.0-16.0); White Blood Count 5.1 X10*3/uL (4.8-10.8)
[2024-10-06 12:04] LABS: Alanine Aminotransferase 32 U/L (0-40); Albumin Level 4.2 g/dL (3.5-5.0); Alkaline Phosphatase 72 U/L (39-117); Anion Gap 11 (12-20); Aspartate Amino Transferase 26 U/L (5-37); Bilirubin Total 0.8 mg/dL (0.0-1.0); Blood Urea Nitrogen 16 mg/dL (9-16); Calcium 9.6 mg/dL (8.4-10.2); Carbon Dioxide 29 mmol/L (22-29); Chloride 105 mmol/L (96-108); Cholesterol 153 mg/dL (<200); Estimated Glomerular Filt Rate > 60; Glucose Fasting 72 mg/dL (60-99); HDL Cholesterol 67 mg/dL (>40); LDL Cholesterol Calculated 77 mg/dL (<100); Potassium 4.2 mmol/L (3.3-5.1); Sodium 141 mmol/L (135-145); Total Protein 7.4 g/dL (6.5-8.0); Triglycerides 45 mg/dL (<150)
== END 2024-10-06 07:48 | disposition home or self-care (01) ==
LOC: HO.WFDLDS 07:47
PROVIDERS: Visit Provider Family Medicine
DX: Z00.00 Encounter for general adult medical examination without abnormal findings (principal); E78.5 Hyperlipidemia, unspecified
CPT/HCPCS: 36415; 80053; 80061; 85025

== ENCOUNTER 2024-10-13 09:44 | Outpatient (AMB) | payer OTHER, SELFPAY ==
--- NOTE | 2024-10-13 09:57 | A.OFFPC_ITS ---
Vital Signs 10/13/24 09:59 Height 5 ft 11 in Weight 210 lb 8 oz BMI 29.4 BP 110/60 Blood Pressure Location Lt brachial Position Sitting Respiration 14 Pulse 60 Pulse Source Pulse Oximeter Temp 98.1 F Temp Source Oral Pulse Oximetry (%) 95 Oxygen Delivery Method Room Air Intake Visit Reasons: f/u hld- see comments Intake Note: patient is scheduled to review labs with pcp Allergies No Known Allergies Allergy (Verified 10/13/24 09:57) Medication List - Last Reconciled 10/13/24 by Srikanth Reyes MD albuterol sulfate 90 mcg/actuation 1 puff inhalation QID 30 days atorvastatin 10 mg PO BEDTIME 90 days Tobacco use date assessed: 04/12/24 Dental Screening Dental Screen Date: 04/12/24 HPI f/u hld- see comments HPI Details 59 y/o male presents to f/u HLD. Labs drawn 10/06/24. Reviewed labs with pt. Triglycerides 45. TC 153. LDL 77. HDL 67. He is on artovastatin 10mg. AST 26. ALT improved from 41 to 32. HPI Comments History of Present Illness Details Documentation assistance for Srikanth Reyes MD, was provided by Dago Osborn,? Outsole Paraffiner on 10/13/2024 at 10:34 AM EST. I, Dr. Reyes, have read, observed, and verified documentation. ?? PFSH Medical History Kidney stone on left side Asthma Surgical History H/O neck surgery History of appendectomy Family History Father Pulmonary fibrosis Arthritis High blood pressure Social History (Updated 04/12/24 @ 09:08 by KIMBERLEY Cabello) Household Members: Spouse Both parents involved: No Caregiver staying overnight: No Housing: House Are you a primary pharmacy customer care specialist to a significant other at home: No Do you presently have visiting nurse or other home services: No 75 years or older and lives alone: No Alcohol intake: current Patient Tobacco Use Status: Never used Tobacco e-Cigarette/Vaping Use: Never Used Second Hand Smoke Exposure: No service: Yes Current occupational status: employed Current occupation: [employer] Cognitive needs: No Hearing needs: No Vision needs: No Questionnaire PHQ-9 Over the last 2 weeks, how often have you been bothered by any of the following problems? 1. Little interest or pleasure in doing things: not at all 2. Feeling down, depressed, or hopeless: not at all 3. Trouble falling or staying asleep, or sleeping too much: not at all 4. Feeling tired or having little energy: not at all 5. Poor appetite or overeating: not at all 6. Feeling bad about yourself - or that you are a failure or have let yourself or your family down: not at all 7. Trouble concentrating on things, such as reading the newspaper or watching television: not at all 8. Moving or speaking so slowly that other people could have noticed. Or the opposite - being so fidgety or restless that you have been moving around a lot more than usual: not at all 9. Thoughts that you would be better off or of hurting yourself in some way: not at all Total score: 0 Depression Screening Interpretation: Negative Depression Screening Done: Yes 22604 - PHQ-9 Billing: Yes Source: Developed by Drs. Srinivasan Joshi, Yvonne Chapman, Joel Bains and colleagues, with an educational steven from [employer]. Thrive Questionnaire Date Thrive assessed: 10/13/24 I am a: Patient What is your living situation today?: I have a steady place to live Within the past 12 months, did the food you bought not last and you didn't have the money to get more?: Never true Within the past 12 months, did you worry whether your food would run out before you got money to buy more?: Never true Do you have trouble paying for medicines?: No Do you have trouble getting transportation to medical appointments?: No Do you have trouble paying your heating and electricity bill?: No Do you have trouble taking care of your child, family member or friend?: No Do you have trouble with day-to-day activities such as bathing, preparing meals, shopping, managing finances, etc.?: No Are you currently unemployed and looking for a job?: No Are you interested in more education?: No Please select the resources that you would like help with: None Currently or been in a relationship where the following occur: No concerns reported THRIVE Score: 0 AUDIT C Alcohol Use Questionnaire (AUDIT-C) 1. How often do you have a drink containing alcohol?: 2-3 times a week 2. How many drinks containing alcohol do you have on a typical day when you are drinking?: 1 or 2 3. How often do you have six or more drinks on one occasion?: Less than monthly Total Score: 4 Score Reviewed/Action Taken: Yes MAXIM-7 AMB Questionnaire MAXIM-7 Date MAXIM - 7 assessed: 10/13/24 Feeling nervous, anxious, or on edge: 0 = Not at all Not being able to stop or control worryin = Not at all Worrying too much about different things: 0 = Not at all Trouble relaxin = Not at all Being so restless that it is hard to sit still: 0 = Not at all Becoming easily annoyed or irritable: 0 = Not at all Feeling afraid as if something awful might happen: 0 = Not at all Total MAXIM-7 score (0-4 normal; 5-9 mild; 10-14 moderate; 15-21 severe): 0 Source: Developed by Drs. Srinivasan Joshi, Yvonne Chapman, Joel Bains and colleagues, with an educational steven from [employer]. MAXIM-7 Assessment Billing MAXIM-7 Assessment Tool: MAXIM-7 Assessment 84622 Review of Systems Const Denies chills, Denies fatigue, Denies fever(s), Denies headache(s) and Denies weakness ENT Denies dizziness and Denies headache(s) Card Denies dyspnea Resp Denies cough, Denies dyspnea, Denies wheezing and Denies other (shortness of breath) Musc Denies numbness and Denies tingling Neuro Denies dizziness, Denies headache(s), Denies numbness, Denies tingling and Denies weakness Psych Denies anxiety and Denies depression Endo Denies fatigue Aller/Immun Denies wheezing Physical exam (Primary Care) Vital Signs: Last Vital Signs Temp 98.1 F 10/13/24 09:59 Pulse 60 10/13/24 09:59 Resp 14 10/13/24 09:59 BP 110/60 10/13/24 09:59 Pulse Ox 95 10/13/24 09:59 Oxygen Delivery Method Room Air 10/13/24 09:59 BMI result Body Mass Index 29.4 Tobacco/Smoking Status: Tobacco use Status Tobacco use date assessed 04/12/24 10/13/24 10:02 Patient Tobacco Use Status Never used Tobacco 10/13/24 10:02 e-Cigarette/Vaping Use Never Used 10/13/24 10:02 PHQ-9: PHQ-9 Score PHQ-9: Total score 0 10/13/24 10:36 Depression Screening Interpretation: Negative Thrive Assessment: Date of Thrive Assessment Date Thrive assessed 10/13/24 10/13/24 10:02 Currently or been in a relationship where the following occur: No concerns reported Const General: well developed; No acute distress Nutritional Appearance: well nourished Orientation/consciousness: patient oriented x3 HENMT Head: Yes normocephalic and Yes atraumatic Eyes General: appearance normal, both eyes and all related structures Pupils: Equal, round and reactive pupils present EOM: EOMs intact bilaterally Resp Effort & Inspection: normal respiratory effort Auscultation: clear to auscultation bilaterally Cardio Rate: regular rate Rhythm: regular rhythm Heart sounds: S1 normal heart sound present, S2 normal heart sound present, no gallops, no murmurs and no rubs Neuro General: patient oriented x3 and gait normal Cranial nerves: Yes Equal, round and reactive pupils present Psych Affect: normal affect Coding Level of Care Code Est Pt Level 3 (46248) Diagnoses Hyperlipidemia E78.5 Borderline anemia D64.9 Elevated ALT measurement R74.01 Screening for colon cancer Z12.11 Screening for prostate cancer Z12.5 Additional Codes MAXIM-7 Assessment Billing - MAXIM-7 Assessment Tool: MAXIM-7 Assessment 68669 ([id number]) PHQ-9 - 72392 - PHQ-9 Billing: Yes ([id number]) Assessment & Plan Assessment & Plan (1) Hyperlipidemia: Code(s): E78.5 - Hyperlipidemia, unspecified Category: Medical Plan: Lipids?well?controlled?on?10?mg?daily Continue?current?medication (2) Borderline anemia: Code(s): D64.9 - Anemia, unspecified Category: Medical Plan: This?has?resolved (3) Elevated ALT measurement: Code(s): R74.01 - Elevation of levels of liver transaminase levels Category: Medical Plan: This?has?resolved (4) Screening for colon cancer: Code(s): Z12.11 - Encounter for screening for malignant neoplasm of colon Category: Medical Plan: No?record?of?prior?colonoscopy?though?patient?feels?certainly?had?1?done?about?5 ?years?ago. He?has?been?unable?to?find?the?records?nor?this?office. We?discussed Cologuard?testing?and?patient?would?like?to?get?this. Ordered (5) Screening for prostate cancer: Code(s): Z12.5 - Encounter for screening for malignant neoplasm of prostate Category: Medical Plan: PSA?was?within?normal?limits?at?last?check. Will?recheck?next?blood?draw?as?he?will?due Orders: Orders Comprehensive [place]. Panel Fast Today Z00.00 - Encounter for general adult medical examination without abnormal findings Complete Blood Count Auto Diff Today Z00.00 - Encounter for general adult medic al examination without abnormal findings Microalbumin, Random (w Creat) Today I10 - Essential (primary) hypertension Prostate Specific Antigen Scr Today Z12.5 - Encounter for screening for malignant neoplasm of prostate Lipid Panel Today Z00.00 - Encounter for general adult medical examination without abnormal findings UA and rflx microscopic Today Z00.00 - Encounter for general adult medical examination without abnormal findings TSH reflex Free T4 Today Z00.00 - Encounter for general adult medical examination without abnormal findings Referrals Cologuard Test Z12.11 - Encounter for screening for malignant neoplasm of colon, Z12.12 - Encounter for screening for malignant neoplasm of rectum
[2024-10-13 09:59] VITALS: BP 110/60; PULSE 60; RESP 14; TEMP 36.7; O2SAT 95; BMI 29.4
--- OUTSIDE RECORDS SUMMARY | 2024-10-13 10:47 | XMS_ITS | Encounter Summary ---
Author Organization [facility] Address [address] [place] [address] Care Team Providers Care Bead Wire Insulator Name Role Phone Rich Fischer MD Primary Care Provider Unava ilable Reason for Visit * Reason Onset Date Comments Medication 12/31/2017 Encounter Details Date Type Department Care Team Description 12/31/2017 Refill Gastroenterology - [address] [id number] Jewel Gaxiola MD Medication Social History Tobacco Use Types Packs/Day Years Used Date Smoking Tobacco: Never Smokeless Tobacco: Never Alcohol Use Standard Drinks/Week Comments Yes 0 (1 standard drink = 0.6 oz pur e alcohol) 5-6 drinks weekly Sex Assigned at Date Recorded Not on file documented as of this encounter Miscellaneous Notes * Telephone Encounter - Baljinder Mg MD - 12/31/2017 10:24 AM EDT Prescribed * Telephone Encounter - Esthela Hudson - 12/31/2017 10:12 AM EDT Pt scheduled for Colon on 02-05-18 please sign orders documented in this encounter Plan of Treatment Not on file documented as of this encounter Visit Diagnoses Not on filedocumented in this encounter Care Teams Bead Wire Insulator Relationship Specialty Start Date End Date Rich Fischer MD PCP - General Internal Medicine 10/28/17 documented as of this encounter
--- OUTSIDE RECORDS SUMMARY | 2024-10-13 10:47 | XMS_ITS | Encounter Summary ---
Author Organization [facility] Address [address] [place] [address] Care Team Providers Care Rn Critical Care Name Role Phone Rich Fischer MD Primary Care Provider Unava ilable Encounter Details Date Type Department Care Team Description 11/11/2017 Release of Information Medical Records [address] [place] [id number] Abstract, Provider Social History Tobacco Use Types Packs/Day Years Used Date Smoking Tobacco: Never Assessed Sex Assigned at Date Recorded Not on file documented as of this encounter Plan of Treatment Not on file documented as of this encounter Visit Diagnoses Not on filedocumented in this encounter Care Teams Rn Critical Care Relationship Specialty Start Date End Date Rich Fischer MD PCP - General Internal Medicine 10/28/17 documented as of this encounter
== END 2024-10-13 10:55 | disposition home or self-care (01) ==
LOC: HO.HMCFM 09:44
PROVIDERS: PCP Family Medicine; Visit Provider Family Medicine
DX: E78.5 Hyperlipidemia, unspecified (principal); D64.9 Anemia, unspecified; R74.01 Elevation of levels of liver transaminase levels; Z12.11 Encounter for screening for malignant neoplasm of colon; Z12.5 Encounter for screening for malignant neoplasm of prostate

== ENCOUNTER → 2024-10-13 09:44 | Outpatient (BNVA) | payer OTHER, SELFPAY | PROVIDERS: PCP Family Medicine; Visit Provider Family Medicine | DX: E78.5 Hyperlipidemia, unspecified (principal); Z86.2 Personal history of diseases of the blood and blood-forming organs and certain disorders involving the immune mechanism; Z79.899 Other long term (current) drug therapy | CPT/HCPCS: 96127 ==

== ENCOUNTER 2025-05-24 07:54 | Outpatient (REF) | payer OTHER, SELFPAY ==
--- OUTSIDE RECORDS SUMMARY | 2025-05-24 07:56 | XMS_ITS ---
Author Name [facility] Organization Unknown Care Team Organization Name Specialty Phone Email Start Date End Da te [facility] OSMIN CAN Primary Care 06/03/2022 03/14/20 24
[2025-05-24 11:31] LABS: MANUAL DIFF FLAG NO
[2025-05-24 11:42] LABS: Appearance Urine Clear; Glucose Urine UA Negative (Negative); PH 7.5 (5.0-9.0); Specific Gravity - Urine 1.020 (1.005-1.025)
[2025-05-24 11:44] LABS: Hematocrit 43.9 % (42.0-52.0); Hemoglobin 14.9 g/dl (14.0-18.0); Imm Gran Abs Auto 0.01 X10*3/uL (0.00-0.03); Imm Gran Pct Auto 0.2 % (0.0-0.4); Lymphocytes Absolute Auto 1.8 X10*3/uL (1.2-4.9); Mean Corpuscular HGB Conc 33.9 g/dl (31.0-36.0); Mean Corpuscular Hemoglobin 32.4 pg (27.0-33.0); Mean Corpuscular Volume 95.4 fL (80.0-98.0); NRBC Abs Auto 0.000 X10*3/uL (0.0-0.012); NRBC Pct Auto 0.0 /100WBC (0.0-0.2); Platelet Count 231 X10*3/uL (160-400); Red Blood Count 4.60 X10*6/uL (4.60-5.80); White Blood Count 6.6 X10*3/uL (4.8-10.8)
[2025-05-24 11:59] LABS: Alanine Aminotransferase 29 U/L (0-40); Albumin Level 4.3 g/dL (3.5-5.0); Alkaline Phosphatase 69 U/L (39-117); Anion Gap 8 (12-20); Aspartate Amino Transferase 27 U/L (5-37); Blood Urea Nitrogen 15 mg/dL (9-16); Calcium 9.4 mg/dL (8.4-10.2); Carbon Dioxide 29 mmol/L (22-29); Chloride 109 mmol/L (96-108); Cholesterol 168 mg/dL (<200); Estimated Glomerular Filt Rate > 60; HDL Cholesterol 63 mg/dL (>40); Potassium 4.1 mmol/L (3.3-5.1); Sodium 142 mmol/L (135-145); Total Protein 6.9 g/dL (6.5-8.0); Triglycerides 64 mg/dL (<150)
== END 2025-05-24 07:55 | disposition home or self-care (01) ==
LOC: HO.WFDLDS 07:54
PROVIDERS: Visit Provider Family Medicine
DX: Z00.00 Encounter for general adult medical examination without abnormal findings (principal); Z12.5 Encounter for screening for malignant neoplasm of prostate; I10 Essential (primary) hypertension
CPT/HCPCS: 36415; 80053; 80061; 81003; 82043; 82570; 84153; 84443; 85025

== ENCOUNTER 2025-05-30 08:07 | Outpatient (AMB) | payer OTHER, SELFPAY ==
[2025-05-30 08:10] VITALS: BP 116/68; PULSE 69; RESP 14; TEMP 36.6; O2SAT 97; BMI 30.5
--- NOTE | 2025-05-30 08:10 | A.OFFPC_ITS ---
Vital Signs 05/30/25 08:10 Height 5 ft 11 in Weight 218 lb 6 oz BMI 30.5 BP 116/68 Blood Pressure Location Rt brachial Position Sitting Respiration 14 Pulse 69 Pulse Source Pulse Oximeter Temp 97.9 F Temp Source Oral Pulse Oximetry (%) 97 Oxygen Delivery Method Room Air Intake Visit Reasons: Physical Dr. Bar ptElbert Intake Note: Physical. Refill on albuterol inhaler Hand Buffer Required: No Allergies No Known Allergies Allergy (Verified 05/30/25 08:20) Medication List - Last Reconciled 05/30/25 by Claudia Orantes, R D MANAGER- albuterol sulfate 90 mcg/actuation 1 puff inhalation QID 30 days atorvastatin 10 mg PO BEDTIME 90 days Tobacco use date assessed: 04/12/24 Dental Screening Dental Screen Date: 05/30/25 Did you have a dental visit in the last 12 months?: Yes Did you have a dental problem in the last 6 months where you did not have access to dental care?: No Was dental information given to patient?: Patient has dentist HPI HPI Comments History of Present Illness Details History of Present Illness The patient is a 59-year-old male presenting for a complete physical exam. Hyperlipidemia: - The patient has a history of hyperlipi demia for which he takes atorvastatin 10 mg. - Recent labs from May 24, 2025, wesly wed an LDL of 93. - He started statin therapy about a year ago, initially at a 20 mg dose, which was subsequently lowered to 10 mg due to myalgia. Statin-induced myalgia: - The patient reports a general achiness in his hands and legs that began about a year ago after starting statin therapy. - He describes the sensation as similar to post-workout muscle soreness, which is more pronounced in the morning and after periods of sitting, but improves as the day progresses. - The achiness improved after his atorva statin dose was reduced from 20 mg to 10 mg. - He recently began taking CoQ10 100mg Q D, which he feels has helped slightly. Mild intermittent asthma: - The patient has a history of mild inte rmittent asthma and possesses an albuterol inhaler for as-needed use. - He reports using the inhaler infrequen tly, typically during the fall season while raking leaves. - He notes that a single inhaler can las t him for one to two years. Onychomycosis: - The patient reports a 20-year history of toenail fungus. - For the past two to three months, he h as been applying tea tree oil to the affected toenails daily and has observed gradual improvement in the nail's appearance. Colon cancer screening: - The patient completed a Cologuard test in September 2024, which returned a negative result. - He is on a three-year recall for his n ext colon cancer screening. Past Medical History - Hyperlipidemia, managed with atorvasta tin. - Mild intermittent asthma, managed with albuterol as needed. - Onychomycosis, present for approximate ly 20 years. - History of allergies, inferred from el evated eosinophils. Past Surgical History - Patient denies any new surgeries withi n the last year. Family History - Patient reports no new changes in fami ly medical history. - Brother has a history of digestive iss ues, possibly Crohn's disease, and has been overweight with a sedentary lifestyle. Social History - Exercise: The patient has a lifelong h istory of being physically active, working out, and engaging in fitness activities. - Wellness Practices: He performs a ced y 5-minute lymphatic flow massage routine, which he feels is beneficial. Health Maintenance - Administered influenza vaccine in the office today. - Colon Cancer Screening: Patient advise d that his negative Cologuard result is valid for three years, at which point he can choose between a repeat Cologuard or a colonoscopy. - Onychomycosis: Advised to continue cur rent treatment with tea tree oil. If this fails, a referral to podiatry for alternative treatments, such as nail bed injections, can be considered. - Supplements: Advised against initiatin g fish oil due to potential for increased bleeding risk and gastritis. - Glasses, annual visits - Derm has first skin survellience alejandro daniels scheduled in September. Has no focal skin complaints Review of Systems - Musculoskeletal: Reports generalized a chiness in his hands and legs, worse in the morning and after periods of rest. - Neurological: Reports occasional numbn ess in his feet. - Respiratory: Denies regular respirator y symptoms but reports occasional need for an inhaler with environmental triggers like raking leaves. - GI: Denies any issues with bowel movem ents. - : Denies any issues with urination. - Skin: Reports new age spots and a hist ory of toenail fungus. Physical Exam General: Well developed, well nourished, in no acute distress. Appears stated age. Head: Normocephalic, atraumatic. Eyes: Pupils are equal, round and reactive to light and accommodation. Conjunctivae are clear. Scleras nonicteric bilat. Vision grossly normal. Ears: TMs clear AU, EACS WNL Nose: Patent, without discharge. Neck: No carotid bruit bilat. Supple, no adenopathy or thyromegaly. Breast: Edu on SBE Lungs: Clear to auscultation bilaterally. No rales, rhonchi or wheeze noted. Good air flow in all jones. Heart: Regular rate and rhythm. No murmurs, click, rubs or gallops are noted. Abdomen: Bowel sounds present in all quadrants. The abdomen is soft, nontender, with no masses or organomegaly noted. No hernias are noted. : Deferred. Reviewed NIGEL & recommendations Pulses: Peripheral pulses are equal and palpable bilaterally. Extremities: No clubbing, cyanosis nor edema is noted. Patient reports occasional numbness in feet. Neurologic: Gait and station normal. Cranial Nerves 2-12 intact. Motor strength grossly symmetrical and intact. No sensory loss. Balance normal. Skin: No rashes, ulcers, or lesions noted. Turgor is good. Skin color is good. Hair and nails are without abnormalities. Patient reports toenail fungus Psych: Normal eye contact, affect and mood appropriate, and normal interactions. Patient is alert and appropriate to context. Results - Labs (May 24, 2025): LDL 93 mg/dL, PSA 0.76 ng/mL, Eosinophils 5.0%, and Chloride 109 mmol/L. - Kidney function, thyroid function, and urinalysis were all normal. - Cologuard (September 2024): Negative for a bnormal DNA or blood. Medical Decision Making The patient is a 59-year-old male here for a complete physical exam. His primary complaint is persistent myalgia despite a dose reduction of his atorvastatin, which he has been on for approximately one year. His LDL is at goal at 93 mg/dL, and he has found minimal relief with CoQ10. Given the impact of the myalgia on his quality of life, we will switch his statin from atorvastatin to fluvastatin 20 mg daily, as fluvastatin has a lower propensity for causing muscle aches. A prior authorization will be submitted, with pravastatin as a secondary option if fluvastatin is not approved. He is advised to continue CoQ10 and will have a repeat lipid panel in 4-6 months to ensure continued lipid control. Other health maintenance items were addressed, including refilling his albuterol for mild intermittent asthma, confirming his next colon cancer screening is due in three years following a negative Cologuard, and administering the influenza vaccine. His lab results were reviewed, and counseling was provided regarding the benign nature of his slightly elevated eosinophils (allergies) and chloride level. He was also counseled against initiating fish oil due to bleeding risks. Plan 1. Hyperlipidemia And Statin-Induced Ashanti lgia - Discontinue atorvastatin. - Start fluvastatin 20 mg once daily. - A prior authorization will be submitte d for fluvastatin, citing myalgia with atorvastatin as the reason for the change. - If fluvastatin is denied by insurance, pravastatin will be prescribed as an alternative. - Continue CoQ10 supplementation. An att empt will be made to send a prescription for CoQ10 to assess for insurance coverage. - Patient advised to provide feedback on myalgia symptoms in 6-8 weeks via the patient portal. - Schedule follow-up appointment in 4-6 months with a repeat lipid panel to be drawn one week prior to the visit. 2. Mild Intermittent Asthma - Refill prescription for albuterol inha ler with three refills. - Advised patient to use the refills to maintain a backup supply of his inhale r.\ - Flu vaccine admin today. Patient Instructions - You will be switching from atorvastati n to a new cholesterol medication called fluvastatin. - Once you orange picking supervisor the fluvastatin from the pharmacy, you can stop taking the atorvastatin. - Please keep your leftover atorvastatin pills in case the new medication does not work for you. - Your insurance needs to approve the ne w medication. You should receive a text from the pharmacy if it gets filled. If you do not hear anything within a week, please send us a message on the patient portal. - Continue taking your CoQ10 supplement. - A prescription for your albuterol inha ler has been refilled for you. - You received your flu shot today. - Continue using the tea tree oil for yo ur toenail fungus, as it seems to be helping. - Your next colon cancer screening is du e in three years. - Please schedule a follow-up appointmen t in about 4 to 6 months. You will need to have blood work done one week before this appointment. Consent Patient was informed and verbally consented to the use of an ambient scribe for clinic note documentation during this visit. An additional 20 minutes was spent addressing the problem(s) noted at todays visit. This includes time spent before the visit reviewing the chart, time spent during the visit, and time spent after the visit on documentation reviewing laboratory results, diagnostic imaging, medications, performing a medically necessary evaluation, counseling on diagnoses, care coordination, ordering appropriate tests, ordering appropriate medications, review of tests performed by other providers, reporting test results with the patient, communication with other healthcare providers. [facility] Medical History Kidney stone on left side Asthma Surgical History H/O neck surgery History of appendectomy Family History Father Pulmonary fibrosis Arthritis High blood pressure Social History (Updated 04/12/24 @ 09:08 by Carol Ann Casper [facility]) Household Members: Spouse Both parents involved: No Caregiver staying overnight: No Housing: House Are you a primary wild animal caretaker to a significant other at home: No Do you presently have visiting nurse or other home services: No 75 years or older and lives alone: No Alcohol intake: current Patient Tobacco Use Status: Never used Tobacco e-Cigarette/Vaping Use: Never Used Second Hand Smoke Exposure: No Substance Use Type: Marijuana service: Yes Current occupational status: retired Current occupation: [employer] Cognitive needs: No Hearing needs: No Vision needs: No Questionnaire PHQ-9 Over the last 2 weeks, how often have you been bothered by any of the following problems? 1. Little interest or pleasure in doing things: not at all 2. Feeling down, depressed, or hopeless: not at all 3. Trouble falling or staying asleep, or sleeping too much: not at all 4. Feeling tired or having little energy: not at all 5. Poor appetite or overeating: not at all 6. Feeling bad about yourself - or that you are a failure or have let yourself or your family down: not at all 7. Trouble concentrating on things, such as reading the newspaper or watching television: not at all 8. Moving or speaking so slowly that other people could have noticed. Or the opposite - being so fidgety or restless that you have been moving around a lot more than usual: not at all 9. Thoughts that you would be better off or of hurting yourself in some way: not at all Total score: 0 Depression Screening Interpretation: Negative Depression Screening Done: Yes 05198 - PHQ-9 Billing: Yes Source: Developed by Drs. Srinivasan Joshi, Yvonne Chapman, Joel Bains and colleagues, with an educational steven from [employer]. Thrive Questionnaire Date Thrive assessed: 10/13/24 I am a: Patient What is your living situation today?: I have a steady place to live Within the past 12 months, did the food you bought not last and you didn't have the money to get more?: Never true Within the past 12 months, did you worry whether your food would run out before you got money to buy more?: Never true Do you have trouble paying for medicines?: No Do you have trouble getting transportation to medical appointments?: No Do you have trouble paying your heating and electricity bill?: No Do you have trouble taking care of your child, family member or friend?: No Do you have trouble with day-to-day activities such as bathing, preparing meals, shopping, managing finances, etc.?: No Are you currently unemployed and looking for a job?: No Are you interested in more education?: No Please select the resources that you would like help with: None Currently or been in a relationship where the following occur: No concerns reported THRIVE Score: 0 AUDIT C Alcohol Use Questionnaire (AUDIT-C) 1. How often do you have a drink containing alcohol?: 2-3 times a week (weekends) 2. How many drinks containing alcohol do you have on a typical day when you are drinking?: 5 or 6 3. How often do you have six or more drinks on one occasion?: Never Total Score: 5 Score Reviewed/Action Taken: Yes MAXIM-7 AMB Questionnaire MAXIM-7 Date MAXIM - 7 assessed: 10/13/24 Source: Developed by Drs. Srinivasan Joshi, Yvonne Chapman, Joel Bains and colleagues, with an educational steven from [employer]. Physical exam (Primary Care) Vital Signs: Last Vital Signs Temp 97.9 F 05/30/25 08:10 Pulse 69 05/30/25 08:10 Resp 14 05/30/25 08:10 BP 116/68 05/30/25 08:10 Pulse Ox 97 05/30/25 08:10 Oxygen Delivery Method Room Air 05/30/25 08:10 BMI result Body Mass Index 30.5 BMI Assessment/Plan discussion: High BMI High, discussed plan: lifestyle Tobacco/Smoking Status: Tobacco use Status Tobacco use date assessed 04/12/24 05/30/25 08:18 Patient Tobacco Use Status Never used Tobacco 05/30/25 08:18 e-Cigarette/Vaping Use Never Used 05/30/25 08:18 PHQ-9: PHQ-9 Score PHQ-9: Total score 0 05/30/25 08:20 Depression Screening Interpretation: Negative Thrive Assessment: Date of Thrive Assessment Date Thrive assessed 10/13/24 05/30/25 08:18 Currently or been in a relationship where the following occur: No concerns reported Office Procedures Flu Questionnaire Does the patient have a severe egg allergy?: No Does the patient have severe life threatening allergies?: No Has the patient ever had Guillain-Crimora Syndrome?: No Has the patient ever had any past reaction to a flu shot?: No Immunizations Fluarix [id number] (PF) 45 mcg (15 mcg x 3)/0.5 mL IM syringe Performing Provider: GIOVANI Chang Performing Location: [facility] Administered by: Jennifer Hooks MA on 05/30/25 08:57 Dose Route Admin Location Dispensed Lot Number Expiration Date NDC Full Fashioned Garment Knitter 0.5 mL IM Left Deltoid 0.5 mL [id number] 01/23/26 [id number] [employer] VIS Given Date VIS Provided VIS Publication Date 05/30/25 Single Vaccine 24 Eligibility Eligibility Date Funding Source Not [facility] Eligible 05/30/25 Private Coding Level of Care Code Est Pt Level 3 (82373) Est Pt Prev Care 40-64y(02276) Diagnoses Adult general medical exam Z00.00 Obesity (BMI 30-39.9) E66.9 Myalgia due to statin M79.10; T46.6X5A Mixed hyperlipidemia E78.2 Hyperlipidemia type: mixed hyperlipidemia History of colonoscopy Z98.890 Influenza vaccination administered at current visit Z23 Onychomycosis B35.1 Additional Codes PHQ-9 - 29371 - PHQ-9 Billing: Yes ([id number]) Assessment & Plan Assessment & Plan (1) Adult general medical exam: Onset Date: ~05/30/25 Code(s): Z00.00 - Encounter for general adult medical examination without abnormal findings Category: Medical (2) Obesity (BMI 30-39.9): Code(s): E66.9 - Obesity, unspecified Category: Medical (3) Myalgia due to statin: Code(s): M79.10 - Myalgia, unspecified site; T46.6X5A - Adverse effect of an tihyperlipidemic and antiarteriosclerotic drugs, initial encounter Category: Medical (4) Hyperlipidemia: Code(s): E78.5 - Hyperlipidemia, unspecified Category: Medical Qualifiers: Hyperlipidemia type: mixed hyperlipidemia Qualified Code(s): E78.2 - Mixed hyperlipidemia (5) History of colonoscopy: Onset Date: ~2024 Comment: NEGATIVE [place] Code(s): Z98.890 - Other specified postprocedural states Category: Surgical (6) Influenza vaccination administered at current visit: Onset Date: ~05/30/25 Code(s): Z23 - Encounter for immunization Category: Medical (7) Onychomycosis: Code(s): B35.1 - Tinea unguium Category: Medical Plan . Orders: Orders Lipid Panel 4 Months E78.5 - Hyperlipidemia, unspecified, M79.10 - Myalgia, unspecified site, T46.6X5A - Adverse effect of antihyperlipidemic and antiarteriosclerotic drugs, initial encounter Comprehensive [place]. Panel Fast 4 Months E78.5 - Hyperlipidemia, unspecified, M79.10 - Myalgia, unspecified site, T46.6X5A - Adverse effect of antihyperl ipidemic and antiarteriosclerotic drugs, initial encounter Influenza [id number] Immunization Today Z23 - Encounter for immunization Medications: New fluvastatin 20 mg PO DAILY 90 caps 0RF coenzyme Q10 (CoQ-10) 100 mg PO DAILY 90 caps 2RF Refilled albuterol sulfate 90 mcg/actuation 1 puff inhalation QID 8.5 grams 3RF 30 days Discontinued atorvastatin Discontinued Reason: Doctor's Order 10 mg PO BEDTIME 90 days 90 tabs 2RF Patient Instructions: Health screenings for men You should visit your health care provider regularly, even if you feel healthy. The purpose of these visits is to: Screen for medical issues Assess your risk for future medical problems Encourage a healthy lifestyle Update vaccinations and other preventive care services Help you get to know your provider in case of an illness Information Even if you feel fine, you should still see your provider for regular checkups. These visits can help you avoid problems in the future. For example, the only way to find out if you have high blood pressure is to have it checked regularly. High blood sugar and high cholesterol level also may not have any symptoms in the early stages. Simple blood tests can check for these conditions. There are specific times when you should see your provider or receive specific health screenings. The [place] Preventive Services Task Force publishes a list of recommended screenings. Below are screening guidelines for men ages 40 to 64. BLOOD PRESSURE SCREENING Have your blood pressure checked at least once every year. Watch for blood pressure screenings in your area. Ask your provider if you can stop in to have your blood pressure checked. Ask your provider if you need your blood pressure checked more often if: You have diabetes, heart disease, kidney problems, or are overweight or have certain other health conditions You have a first-degree relative with high blood pressure You are Black Your blood pressure top number is from 120 to 129 mm Hg, or the bottom number is from 70 to 79 mm Hg If the top number is 130 mm Hg or greater or the bottom number is 80 mm Hg or greater, this is considered stage 1 hypertension. Schedule an appointment with your provider to learn how you can lower your blood pressure. Effects of age on blood pressure CHOLESTEROL SCREENING Cholesterol screening should begin at age 35 for men with no known risk factors for coronary heart disease. Repeat cholesterol screening should take place: Every 5 years for men with normal cholesterol levels More often if changes occur in lifestyle (including weight gain and diet) More often if you have diabetes, heart disease, kidney problems, or certain other conditions COLORECTAL CANCER SCREENING If you are under age 45, talk to your provider about getting screened. You may need to be screened if you have a strong family history of colon cancer or polyps. Screening may also be considered if you have risk factors such as a history of inflammatory bowel disease or polyps. If you are age 45 to 75, you should be screened for colorectal cancer. There are several screening tests available: A stool-based fecal occult blood (gFOBT) or fecal immunochemical test (FIT) every year A stool sDNA test every 1 to 3 years Flexible sigmoidoscopy every 5 years or every 10 years with stool testing FIT done every year CT colonography (virtual colonoscopy) every 5 years Colonoscopy every 10 years You may need a colonoscopy more often if you have risk factors for colorectal cancer, such as: Ulcerative colitis A personal or family history of colorectal cancer A history of growths in your colon called adenomatous polyps DENTAL EXAM Go to the dentist once or twice every year for an exam and cleaning. Your dentist will evaluate if you have a need for more frequent visits. DIABETES SCREENING All adults who do not have risk factors for diabetes should be screened starting at age 35 and repeated every 3 years. If you have other risk factors for diabetes, such as a first degree relative with diabetes, overweight or obesity, high blood pressure, prediabetes, or a history of heart disease, you may be tested more often. If you are overweight and have other risk factors, such as high blood pressure and are planning to become , screening is recommended. EYE EXAM Have an eye exam every 2 to 4 years ages 40 to 54 and every 1 to 3 years ages 55 to 64. Your provider may recommend more frequent eye exams if you have vision problems or glaucoma risk. Have an eye exam that includes an examination of your retina (back of your eye) at least every year if you have diabetes. IMMUNIZATIONS Commonly needed vaccines include: Flu shot: get one every year COVID-19 vaccine: ask your provider what is best for you Tetanus-diphtheria and acellular pertussis (Tdap) vaccine: have as one of your tetanus-diphtheria vaccines if you did not receive it as an adolescent Tetanus-diphtheria: have a booster (or Tdap) every 10 years Varicella vaccine: receive 2 doses if you never had chickenpox or the varicella vaccine and were born in 1980 or after Hepatitis B vaccine: receive 2, 3, or 4 doses, depending on your exact circumstances, if you did not receive these as a child or adolescent, until age 59 Shingles (herpes zoster) vaccine: at or after age 50 Ask your provider if you should receive other immunizations, especially if you have certain medical conditions, such as diabetes or are at increased risk for some diseases such as pneumonia. INFECTIOUS DISEASE SCREENING Screening for hepatitis C: all adults ages 18 to 79 should get a one-time test for hepatitis C. Screening for human immunodeficiency virus (HIV): all people ages 15 to 65 should get a one-time test for HIV. Depending on your lifestyle and medical history, you may need to be screened for infections such as syphilis, chlamydia, and other infections. LUNG CANCER SCREENING You should have an annual screening for lung cancer with low-dose computed tomography (LDCT) if: You are age 50 to 80 years AND You have a 20 pack-year smoking history AND You currently smoke or have quit within the past 15 years OSTEOPOROSIS SCREENING If you are age 50 to 64 and have risk factors for osteoporosis, you should discuss screening with your provider. Risk factors can include long-term steroid use, low body weight, smoking, heavy alcohol use, having a fracture after age 50, or a family history of hip fracture or osteoporosis. Osteoporosis PHYSICAL EXAM All adults should visit their provider from time to time, even if they are healthy. The purpose of these visits is to: Screen for diseases Assess risk of future medical problems Encourage a healthy lifestyle Update vaccinations and other preventive care services Maintain a relationship with a provider in case of an illness Your height, weight, and body mass index (BMI) should be checked at every exam. During your exam, your provider may ask you about: Depression and anxiety Diet and exercise Alcohol and tobacco use Safety, such as use of seat belts and smoke detectors Your medicines and risk for interactions PROSTATE CANCER SCREENING If you're 55 through 69 years old, before having the test, talk to your provider about the pros and cons of having a PSA test. Ask about: Whether screening decreases your chance of dying from prostate cancer. Whether there is any harm from prostate cancer screening, such as side effects from testing or overtreatment of cancer when discovered. Whether you have a higher risk of prostate cancer than others. If you are age 55 or younger, screening is not generally recommended. You should talk with your provider about if you have a higher risk for prostate cancer. Risk factors include: Having a family history of prostate cancer (especially a brother or father) Being If you choose to be tested, the PSA blood test is repeated over time (yearly or less often), though the best frequency is not known. Prostate examinations are no longer routinely done on men with no symptoms. Prostate cancer SKIN EXAM Your provider may check your skin for signs of skin cancer, especially if you're at high risk. People at high risk include those who have had skin cancer before, have close relatives with skin cancer, or have a weakened immune system. TESTICULAR EXAM The [place] Preventive Services Task Force (USPSTF) now recommends against performing testicular self-exams. Doing testicular self-exams has been shown to have little to no benefit.
== END 2025-05-30 09:03 | disposition home or self-care (01) ==
LOC: HO.HMCFM 08:07
PROVIDERS: PCP Family Medicine; Visit Provider Nurse Practitioner Family
DX: Z00.00 Encounter for general adult medical examination without abnormal findings (principal); M79.10 Myalgia, unspecified site; T46.6X5A Adverse effect of antihyperlipidemic and antiarteriosclerotic drugs, initial encounter; J45.20 Mild intermittent asthma, uncomplicated; E78.2 Mixed hyperlipidemia; B35.1 Tinea unguium; E66.9 Obesity, unspecified; Z68.30 Body mass index [BMI] 30.0-30.9, adult; Z98.890 Other specified postprocedural states; Z23 Encounter for immunization

== ENCOUNTER → 2025-05-30 08:07 | Outpatient (BNVA) | payer OTHER, SELFPAY | PROVIDERS: PCP Family Medicine; Visit Provider Nurse Practitioner Family | DX: Z00.00 Encounter for general adult medical examination without abnormal findings (principal); E78.5 Hyperlipidemia, unspecified; J45.20 Mild intermittent asthma, uncomplicated; B35.1 Tinea unguium; E66.9 Obesity, unspecified; M79.10 Myalgia, unspecified site; T46.6X5A Adverse effect of antihyperlipidemic and antiarteriosclerotic drugs, initial encounter; E78.2 Mixed hyperlipidemia; Z23 Encounter for immunization; Z68.30 Body mass index [BMI] 30.0-30.9, adult; Z98.890 Other specified postprocedural states | CPT/HCPCS: 90471; 90656; 96127 ==